=== PATIENT | female | born 1930 | race Caucasian/White ===

== ENCOUNTER 2019-07-06 16:10 | Emergency (ER) | payer OTHER ==
[~2019-07-06] VITALS: Ht 157.5 cm; Wt 77.1 kg
[~2019-07-06 16:10] MED LIST: ASPI81CH PO; ATEN100; ATEN50 PO; Amlodipine Bes2.5 MG PO; BENA20; CEPH500 PO; DIGO.125; DIGO.125 PO; HCTZ; HYDCHL12.5; IBUP800 PO; ISOMON20 PO; LEVFLO500 PO; LISI5 PO; META800 PO; POTCHL20ER PO; PRAV20 PO; Prednisone20 MG PO; Prilosec20 MG PO; TORSE20 PO; TRAM50 PO; UNK DIURETIC; Ventolin/Prove6.7 GM INH
[2019-07-06] MEDS ORDERED: TORSE20 PO (16:37)
[2019-07-06] MEDS ORDERED: METO25ER PO (16:38)
[2019-07-06] MEDS ORDERED: FEBU40TA (16:39)
[2019-07-06] MEDS ORDERED: Acetaminophen-1 EAC1 PO (16:40)
[2019-07-06 16:47] LABS: BASOPHILS ABSOLUTE AUTO 0.04 K/mm3 (0.00-0.23); BASOPHILS PERCENT AUTO 1 % (0-2); EOSINOPHILS ABSOLUTE AUTO 0.03 K/mm3 (0.00-0.68); EOSINOPHILS PERCENT AUTO 1 % (0-6); Hematocrit 37.3 % (33.0-51.0); Hemoglobin 12.1 g/dL (11.5-16.0); IMMATURE GRAN ABSOLUTE AUTO 0.02 K/mm3 (0.00-0.10); IMMATURE GRAN PERCENT AUTO 0 % (0-1); LYMPHOCYTES ABSOLUTE AUTO 0.72 K/mm3 (0.84-5.20); LYMPHOCYTES PERCENT AUTO 11 % (21-46); MONOCYTES PERCENT AUTO 6 % (4-13); Mean Corpuscular HGB 36.8 pg (26.0-34.0); Mean Corpuscular HGB Conc 32.4 g/dL (31.5-36.5); Mean Corpuscular Volume 113 fL (80-100); Mean Platelet Volume 10.2 fL (9.1-12.4); NEUTROPHILS ABSOLUTE AUTO 5.08 K/mm3 (1.96-9.15); NEUTROPHILS PERCENT AUTO 81 % (41-73); Platelet Count 244 K/mm3 (150-400); RDW Coefficient Variation 15.3 % (11.7-14.2); Red Blood Cell Count 3.29 M/mm3 (3.80-5.20); White Blood Cell Count 6.29 K/mm3 (4.00-11.30)
[2019-07-06 16:59] LABS: Alanine Aminotransfer (ALT/SGP 50 U/L (12-78); Albumin, Blood 3.6 g/dL (3.4-5.0); Alk Phos 152 U/L (50-136); Anion Gap 5 mmol/L (6-16); Aspartate Aminotrans (AST/SGOT 84 U/L (12-37); Bilirubin, Total 1.5 mg/dL (0.1-1.0); Blood Urea Nitrogen 9 mg/dL (8-24); Bun/Creatinine Ratio 11.3 (12.0-20.0); CO2, Blood 28 mmol/L (21-32); Chloride, Blood 104 mmol/L (98-108); Globulin, Blood 3.6 g/dL (2.2-4.0); Glomerular Filtration Rate >60 (60-); Glucose, Blood 108 mg/dL (70-99); Potassium, Blood 4.3 mmol/L (3.5-5.5); Sodium, Blood 137 mmol/L (136-145); Total Protein, Blood 7.2 g/dL (6.4-8.2)
[2019-07-06] MEDS ORDERED: TYLECOD3 PO (17:33)
== END 2019-07-06 18:14 | disposition home or self-care (01) ==
LOC: ER 16:10
PROVIDERS: Emergency Medicine
DX: I11.0 Hypertensive heart disease with heart failure (principal); I50.9 Heart failure, unspecified; I48.91 Unspecified atrial fibrillation; E78.5 Hyperlipidemia, unspecified; D64.9 Anemia, unspecified; Z79.899 Other long term (current) drug therapy; Z79.82 Long term (current) use of aspirin
CPT/HCPCS: 71101; 80053; 84484; 85025; 93005; 93010; 96374; 99284-25; J1940

== ENCOUNTER 2019-09-30 16:00 | Inpatient (IN) | payer OTHER ==
[~2019-09-30] VITALS: Ht 152.4 cm; Wt 57.8 kg
[~2019-09-30 16:00] MED LIST changes: -ASPI81CH PO; -Amlodipine Bes2.5 MG PO; -DIGO.125 PO; +FEBU40TA; +METO25ER PO; -POTCHL20ER PO; +TYLECOD3 PO
[2019-09-30 16:42] LABS: BASOPHILS ABSOLUTE AUTO 0.02 K/mm3 (0.00-0.23); BASOPHILS PERCENT AUTO 0 % (0-2); EOSINOPHILS ABSOLUTE AUTO 0.03 K/mm3 (0.00-0.68); EOSINOPHILS PERCENT AUTO 0 % (0-6); Hematocrit 38.6 % (33.0-51.0); Hemoglobin 12.5 g/dL (11.5-16.0); IMMATURE GRAN ABSOLUTE AUTO 0.03 K/mm3 (0.00-0.10); IMMATURE GRAN PERCENT AUTO 0 % (0-1); LYMPHOCYTES ABSOLUTE AUTO 0.58 K/mm3 (0.84-5.20); LYMPHOCYTES PERCENT AUTO 8 % (21-46); MONOCYTES ABSOLUTE AUTO 0.46 K/mm3 (0.16-1.47); MONOCYTES PERCENT AUTO 6 % (4-13); Mean Corpuscular HGB 37.2 pg (26.0-34.0); Mean Corpuscular HGB Conc 32.4 g/dL (31.5-36.5); Mean Corpuscular Volume 115 fL (80-100); Mean Platelet Volume 10.1 fL (9.1-12.4); NEUTROPHILS ABSOLUTE AUTO 6.05 K/mm3 (1.96-9.15); NEUTROPHILS PERCENT AUTO 84 % (41-73); Platelet Count 273 K/mm3 (150-400); RDW Coefficient Variation 16.3 % (11.7-14.2); Red Blood Cell Count 3.36 M/mm3 (3.80-5.20); White Blood Cell Count 7.17 K/mm3 (4.00-11.30)
[2019-09-30 16:57] LABS: Alanine Aminotransfer (ALT/SGP 21 U/L (12-78); Albumin, Blood 3.6 g/dL (3.4-5.0); Albumin/Globulin Ratio 0.9 (0.8-1.8); Alk Phos 139 U/L (50-136); Anion Gap 6 mmol/L (6-16); Aspartate Aminotrans (AST/SGOT 29 U/L (12-37); Bilirubin, Total 2.2 mg/dL (0.1-1.0); Blood Urea Nitrogen 14 mg/dL (8-24); Bun/Creatinine Ratio 20.3 (12.0-20.0); CO2, Blood 27 mmol/L (21-32); Calcium, Blood 9.3 mg/dL (8.5-10.1); Chloride, Blood 102 mmol/L (98-108); Creatinine, Blood 0.69 mg/dL (0.40-1.00); Globulin, Blood 3.9 g/dL (2.2-4.0); Glomerular Filtration Rate >60 (60-); Glucose, Blood 120 mg/dL (70-99); Potassium, Blood 3.7 mmol/L (3.5-5.5); Sodium, Blood 135 mmol/L (136-145); Total Protein, Blood 7.5 g/dL (6.4-8.2)
[2019-09-30 19:02] LABS: Source, Urine Clean Catch
[2019-09-30 19:13] LABS: Blood, Urine 1+ (Neg); Glucose Qualitative, Urine Neg (Neg); Ketones, Urine 1+ (Neg); Leukocyte Esterase, Urine 2+ (Neg); Nitrite, Urine Pos (Neg); Protein, Urine 2+ (Neg); Specific Gravity, Urine 1.025 (1.003-1.022); Urobilinogen, Urine 3+ (Normal)
[2019-09-30 19:26] LABS: Appearance, Urine Cloudy (Clear); Bilirubin, Urine 2+ (Neg); Color, Urine Amber (P-Yellow)
[2019-09-30 19:27] LABS: Bacteria Many /hpf; Squamous Epithelial Cells Few /hpf (Few)
[2019-09-30] MEDS ORDERED: LANOXIN125 MCG PO (20:16)
[2019-09-30] MEDS ORDERED: Acetaminophen-1 EAC1 PO (20:17)
[2019-09-30] MEDS ORDERED: ASPI81CH PO (20:18)
[2019-09-30] MEDS ORDERED: Amlodipine Bes2.5 MG PO (20:19)
[2019-09-30] MEDS ORDERED: POTA10T PO ×2 (20:20)
[2019-09-30 20:43] LABS: Digoxin (Lanoxin) 0.08 ug/mL (0.80-2.00)
[2019-09-30 21:40] LABS: Magnesium, Blood 1.9 mg/dL (1.6-2.4)
[2019-09-30] MEDS ORDERED: ELIQUIS2.5 MG PO (22:09)
--- NOTE | 2019-09-30 22:10 | NUR ---
ATTEMPTED TO CALL FOR REPORT ON PATIENT; SUNDEEP COSTA WAS NOT ABLE TO COME TO PHONE AND WILL CALL WHEN AVAILABLE.
--- NOTE | 2019-10-01 01:30 | NUR ---
ASSUMED CARE OF PATIENT AT APPROXIMATELY 2246 FROM ED JASSON HEARD. YUKO ARRIVED TO UNIT VIA STRETCHER; MAX ASSIST TO TRANFSER FROM ED TO PCU STRETCHER. PATIENT ALERT AND ORIENTED TO SELF, LOCATION AND EVENT. YUKO INCONTINENT OF LARGE AMOUNT OF URINE UPON ARRIVAL TO UNIT. PATIENT HAD RAGS IN HER HOME ATTENDS; PATIENT HAS UTI. PATIENT HAS BEEN INCONTINENT OF URINE MULTIPLE TIMES. PATIENT REPORTS PAIN IN HER BACK FROM FALL LAST WEEK; FX CONFIRMED; REQUEST DILUADID. PATIENT REPORTS SHE TAKES MEDICATIONS PER HER DISCRETION. REPORTS NUMBNESS IN FEET FOR TWO WEEKS; POOR APPETITE RECENTLY; DRINKS WHISKEY DAILY WITH DINNER. PATIENT DENIES TINGLING, DIZZINESS OR NAUSEA. ADMISSION COMPLETE. PATIENT WAS AFIB ON TELE W/ RATE IN 130'S UPON ARRIVAL; ONE DOSE OF PRN METOPROLOL GIVEN AND HEART RATE CURRENTLY AVERAGING 90'S. NO FAMILY PRESENT UPON ADMISSION. PATIENT CURRENTLY RESTING IN BED; CALL LIGHT IN REACH; BED IN LOWEST POSISTION; BED ALARM ON; WILL CONTINUE TO MONITOR AND ASSESS UNTIL END OF SHIFT.
--- NOTE | 2019-10-01 06:36 | NUR ---
NO ACUTE CHANGES TO REPORT. HEART RATE REMAINED IN 90-100'S. PAIN CONTROLLED. WILL CONTINUE TO MONITOR AND ASSESS UNTIL END OF SHIFT. VSS.
--- NOTE | 2019-10-01 18:58 | NUR ---
SHIFT SUMMARY NO ACUTE CHANGES NOTED THROUGH THE DAY. PT REMAINS A&O X3, ON 2 L O2 VIA NC, AFIB PER INFORMATION CLERK BROKERAGE, DENIES CP/SOB, 1 PERSON ASSIST USING GAIT BELT/FWW FOR TRANSFERS. PT WAS ABLE TO WORK WITH PHYSICAL THERAPY TODAY. HER SON WAS ALSO IN TO VISIT AND REQUESTED MULTIPLE COPY'S OF THE PT'S D/C MED LIST SO THAT HE COULD POT THEM AROUND THE HOUSE FOR THE BOTH OF THEM. HE STATED THAT HE "DID NOT REALIZE THAT SHE HAD NOT BEEN TAKING THEM OR THAT IT HAD GOTTEN TO THIS POINT" "I NEED TO START DOING BETTER". HE IS HER MAIN SUBCONTRACTS MANAGER ACCORDING TO THE PT. CIWA SCORES HAVE BEEN NEGATIVE. PT'S PAIN MANAGED PER EMAR. SHE WAS STARTED ON PO NORCO THIS EVENING. WCTM, CALL LIGHT IN REACH,
--- NOTE | 2019-10-01 21:05 | NUR ---
Assumed Care Assumed care of pt at approx 1945 from JASSON Slaughter. Pt in bed, HOB at 15 degrees, tachypneic at 20-25 breathes per minute, pt complains of SOB related to pain in ribs. VSS. Alert and oriented, appears frail, requires assistance with repositions. Takes medications whole with water. DNR band to Right Arm. See shift assessment for detailed assessment. Pt with moderate resp distress with movement from lying to sitting. Respiratory rate increases to 30's and oxygen requirement elevates from 2 L NC to 3.5LPM. pt able to make needs known with call light. Will continue to monitor.
--- NOTE | 2019-10-02 04:42 | NUR ---
Shift Summary Pt with continued pain throughout night excited by movement. When at rest, pt breathing shallow, tachypneic between 23-25. With movement, pt appears to have labored, shallow, tachypneic breathes of 30-35 Respiration rate. Pt tolerating pain with medications currently in [place]. VSS, call light in reach, calls appropriately, alert and oriented. Pt is SBA to BSC for voiding, occasionally incont, attends in place. Pt voididng around 100 mls at a time, concentrated urine.Will continue to monitor.
[2019-10-02 04:52] LABS: BASOPHILS ABSOLUTE AUTO 0.02 K/mm3 (0.00-0.23); BASOPHILS PERCENT AUTO 0 % (0-2); EOSINOPHILS ABSOLUTE AUTO 0.18 K/mm3 (0.00-0.68); EOSINOPHILS PERCENT AUTO 3 % (0-6); Hematocrit 33.1 % (33.0-51.0); Hemoglobin 10.7 g/dL (11.5-16.0); IMMATURE GRAN ABSOLUTE AUTO 0.02 K/mm3 (0.00-0.10); IMMATURE GRAN PERCENT AUTO 0 % (0-1); LYMPHOCYTES ABSOLUTE AUTO 0.58 K/mm3 (0.84-5.20); LYMPHOCYTES PERCENT AUTO 10 % (21-46); MONOCYTES ABSOLUTE AUTO 0.51 K/mm3 (0.16-1.47); MONOCYTES PERCENT AUTO 8 % (4-13); Mean Corpuscular HGB 36.5 pg (26.0-34.0); Mean Corpuscular HGB Conc 32.3 g/dL (31.5-36.5); Mean Corpuscular Volume 113 fL (80-100); Mean Platelet Volume 9.8 fL (9.1-12.4); NEUTROPHILS ABSOLUTE AUTO 4.78 K/mm3 (1.96-9.15); NEUTROPHILS PERCENT AUTO 79 % (41-73); Platelet Count 217 K/mm3 (150-400); RDW Coefficient Variation 15.9 % (11.7-14.2); RDW Standard Deviation 67.5 fL (35.1-46.3); Red Blood Cell Count 2.93 M/mm3 (3.80-5.20); White Blood Cell Count 6.09 K/mm3 (4.00-11.30)
[2019-10-02 05:11] LABS: Alanine Aminotransfer (ALT/SGP 16 U/L (12-78); Albumin, Blood 2.9 g/dL (3.4-5.0); Alk Phos 115 U/L (50-136); Anion Gap 7 mmol/L (6-16); Aspartate Aminotrans (AST/SGOT 21 U/L (12-37); Bilirubin, Total 1.3 mg/dL (0.1-1.0); Blood Urea Nitrogen 11 mg/dL (8-24); CO2, Blood 33 mmol/L (21-32); Calcium, Blood 8.3 mg/dL (8.5-10.1); Chloride, Blood 101 mmol/L (98-108); Creatinine, Blood 0.73 mg/dL (0.40-1.00); Glomerular Filtration Rate >60 (60-); Glucose, Blood 84 mg/dL (70-99); Magnesium, Blood 1.4 mg/dL (1.6-2.4); Phosphorus, Blood 2.4 mg/dL (2.5-4.9); Potassium, Blood 3.4 mmol/L (3.5-5.5); Sodium, Blood 141 mmol/L (136-145); Total Protein, Blood 5.9 g/dL (6.4-8.2)
--- NOTE | 2019-10-02 07:27 | NUR ---
ASSUMED PATIENT CARE. PATIENT RESTING COMFORTABLY IN BED, CONVERSING WITH NURSING STAFF. NO SIGNS OF ACUTE DISTRESS, WCTM.
--- NOTE | 2019-10-02 13:41 | NUR ---
REPORT CALLED TO TAMMIE SPAULDING IN MEDICAL.
--- NOTE | 2019-10-02 15:31 | NUR ---
TRANSFER PT ARRIVED TO MEDICAL FLOOR, ROOM 334. PT ORIENTED TO CALL LIGHT AND ROOM. MEDICATED FOR HEADACHE PAIN WITH TYLENOL PER EMAR. PT HAS NO FURTHER REQUESTS OR COMPLAINTS AT THIS TIME. PT SLEEPING. WILL CONTINUE TO MONITOR. CALL LIGHT IN REACH. BED ALARM ON FOR SAFETY.
--- NOTE | 2019-10-02 18:37 | NUR ---
SHIFT SUMMARY PT WAS A PCU TRANSFER LATE THIS AFTERNOON. THIS RN HAS MEDICATED FOR PAIN X2 THIS SHIFT. PT HAD AN EPISODE BEFORE DINNER WHEN PT WAS CONFUSED AND THOUGHT SHE HAD BEEN KIDNAPPED AND THAT WE, THE STAFF HAD HER IN THE BASEMENT. THIS RN CALLED PT'S SON AND HE TALKED WITH HER AND SHE CALMED DOWN. PT UP TO BATHROOM WITH ASSISTANCE AND NOW BACK IN BED, VISITING WITH FAMILY. NO DISTRESS AT THIS TIME. CALL LIGHT IN REACH AND BED ALARM ON FOR SAFETY. WILL CONTINUE TO MONITOR AND REPORT TO ONCOMING RN.
[2019-10-03 05:44] LABS: Anion Gap 7 mmol/L (6-16); Blood Urea Nitrogen 14 mg/dL (8-24); CO2, Blood 29 mmol/L (21-32); Chloride, Blood 100 mmol/L (98-108); Creatinine, Blood 0.78 mg/dL (0.40-1.00); Glomerular Filtration Rate >60 (60-); Glucose, Blood 81 mg/dL (70-99); Sodium, Blood 136 mmol/L (136-145)
[2019-10-03 05:48] LABS: BASOPHILS ABSOLUTE AUTO 0.02 K/mm3 (0.00-0.23); BASOPHILS PERCENT AUTO 0 % (0-2); EOSINOPHILS ABSOLUTE AUTO 0.16 K/mm3 (0.00-0.68); EOSINOPHILS PERCENT AUTO 3 % (0-6); Hematocrit 33.4 % (33.0-51.0); IMMATURE GRAN ABSOLUTE AUTO 0.04 K/mm3 (0.00-0.10); IMMATURE GRAN PERCENT AUTO 1 % (0-1); LYMPHOCYTES ABSOLUTE AUTO 0.64 K/mm3 (0.84-5.20); LYMPHOCYTES PERCENT AUTO 10 % (21-46); MONOCYTES ABSOLUTE AUTO 0.44 K/mm3 (0.16-1.47); MONOCYTES PERCENT AUTO 7 % (4-13); Mean Corpuscular HGB 36.9 pg (26.0-34.0); Mean Corpuscular HGB Conc 32.9 g/dL (31.5-36.5); Mean Corpuscular Volume 112 fL (80-100); NEUTROPHILS PERCENT AUTO 80 % (41-73); Platelet Count 205 K/mm3 (150-400); RDW Coefficient Variation 15.7 % (11.7-14.2); RDW Standard Deviation 64.9 fL (35.1-46.3); Red Blood Cell Count 2.98 M/mm3 (3.80-5.20)
--- NOTE | 2019-10-03 07:18 | NUR ---
SHIFT SUMMARY PT IS AN 89 Y/O FEMALE, ADMITTED FOR AFIB C RVR. SHE IS A&O X 3, OCCASIONALLY CONFUSED. PT IS A 1-2PA UP TO THE BATHROOM. SHE REPORTED SIDE AND BACK PAIN DURING THE NIGHT, AND WAS MEDICATED ONCE WITH PRN HYDROCODONE. NO COMPLAINTS OF NAUSEA OR SOB. PER PT'S FAMILY, PT IS A DAILY DRINKER AT HOME, AND PT'S FAMILY IS WORRIED THAT PT MAY BE WITHDRAWING. SHE WAS PLEASANT AND COOPERATIVE DURING THE NIGHT, NO EPISODE OF AGITATION. CIWAS BETWEEN 0-2. VITAL SIGNS STABLE. PER VICE ADMIRAL, PT IS IN AFIB IN THE 80S. NO OTHER ACUTE CHANGES IN PT CONDITION NOTED. REPORT GIVEN TO ONCOMING RN.
--- NOTE | 2019-10-03 16:14 | NUR ---
ALERT. ORIENTED. SLEEPS ON LEFT SIDE DUE TO RIB AND BACK PAIN. 1 PERSON ASSIST TO BATHROOM. CIWA NEGATIVE. REQUESTED KELLY, BUT THIS RN DISCUSSED WHY SHE SHOULDN'T HAVE ONE. UNLABORED RESPIRATIONS. MEDICATED FOR PAIN W/GOOD RESULTS. BED IN LOW POSITION. CALL LIGHT WITHIN REACH. [facility]
--- NOTE | 2019-10-03 17:13 | NUR ---
Patient gave permission for care tomorrow.
--- NOTE | 2019-10-04 05:46 | NUR ---
LIGHT BULB TESTER SUMMARY NO ACUTE CHANGES THIS SHIFT. PT AAOX4 AND PLEASANT. STANDBY ASSIST TO BSC. CONTINUES TO HAVE PAIN IN RIBS AND BACK FROM FALL PRIOR TO ADMIT. MEDICATED Q4H PER EMAR. VSS, WILL CONTINUE TO MONITOR.
--- NOTE | 2019-10-04 14:47 | NUR ---
PT GAVE THIS STENCIL CUTTER PERMISSION TO TAKE CARE OF HER TODAY 10/04/2019.
--- NOTE | 2019-10-04 15:33 | NUR ---
Pt gave permission on 10/04/19 to assist in her care on 10/05/19.
--- NOTE | 2019-10-04 18:42 | NUR ---
ALERT. ORIENTED. ABLE TO SIT UP A LITTLE BETTER TODAY; WHEREAS , YESTERDAY WANTED TO LYE ON SIDE DUE TO PAIN. IV PATENT. PATIENT TO GO TO SNF FOR REHAB WHEN AVAILABLE. WALKING IN ROOM W/ASSIST. WCTM
--- NOTE | 2019-10-05 04:36 | NUR ---
GRINDING MILL OPERATOR SUMMARY PT AAOX4 AND PLEASANT. CONTINUES TO HAVE PAIN FROM RIB AND T11 FX'S. HOWEVER, PT REQUIRING PAIN MEDS LESS FREQUENTLY TONIGHT. PT STATED SHE HAD A LONG DAY AFTER WORKING WITH PT/OT AND MAY HAVE PUSHED HERSELF TO HARD. REMAINS ON 3L O2 VIA NC. PT HAS RESTED MOST OF THE SHIFT WITH NO COMPLAINTS. AFIB IN THE 70'S ON TELEMETRY. VSS, WILL CONTINUE TO MONITOR.
--- NOTE | 2019-10-05 18:19 | NUR ---
SHIFT SUMMARY PT HAS BEEN SLEEPING A LOT OF THE SHIFT AND HAS NOT HAD MUCH OF AN APPETITE. THIS RN HAS ENCOURAGED PT TO GET OUT OF BED INTO CHAIR BUT PT HAS DECLINED. PT WILL SIT ON SIDE OF BED FOR MEALS. MEDICATED FOR PAIN PER EMAR. NO ACUTE CHANGES THIS SHIFT. WILL CONTINUE TO MONITOR AND REPORT TO ONCOMING RN.
--- NOTE | 2019-10-06 04:41 | NUR ---
SHIFT SUMMARY: PT IS ALERT AND ORIENTED. PT IS CALM AND COOPERATIVE WITH CARE. PT CALLS APPROPRIATELY. PT TOO WEAK AND PAINFUL TO GET OUT OF BED, INCONTINENT ON SEVERAL OCCASIONS, CHANGED AND CLEANED NEEDED. PT REPORTS BACK PAIN SEVERAL TIMES, MEDICATING PER EMAR. PT DENIES SOB, 3 L O2 KEEPING SATS > 90%. PT DENIES NAUSEA AND VOMITING. PT SLEPT INTERMITTENTLY THROUGHOUT THE NIGHT. NO ACUTE CHANGES OR COMPLICATIONS. WILL REPORT TO DAY NURSE.
[2019-10-06 05:13] LABS: BASOPHILS ABSOLUTE AUTO 0.04 K/mm3 (0.00-0.23); BASOPHILS PERCENT AUTO 1 % (0-2); EOSINOPHILS ABSOLUTE AUTO 0.21 K/mm3 (0.00-0.68); EOSINOPHILS PERCENT AUTO 3 % (0-6); Hematocrit 32.5 % (33.0-51.0); Hemoglobin 10.3 g/dL (11.5-16.0); IMMATURE GRAN ABSOLUTE AUTO 0.02 K/mm3 (0.00-0.10); IMMATURE GRAN PERCENT AUTO 0 % (0-1); LYMPHOCYTES ABSOLUTE AUTO 0.92 K/mm3 (0.84-5.20); LYMPHOCYTES PERCENT AUTO 15 % (21-46); MONOCYTES ABSOLUTE AUTO 0.57 K/mm3 (0.16-1.47); MONOCYTES PERCENT AUTO 9 % (4-13); Mean Corpuscular HGB 36.1 pg (26.0-34.0); Mean Corpuscular HGB Conc 31.7 g/dL (31.5-36.5); Mean Corpuscular Volume 114 fL (80-100); Mean Platelet Volume 9.8 fL (9.1-12.4); NEUTROPHILS ABSOLUTE AUTO 4.47 K/mm3 (1.96-9.15); NEUTROPHILS PERCENT AUTO 72 % (41-73); Platelet Count 216 K/mm3 (150-400); RDW Coefficient Variation 15.8 % (11.7-14.2); RDW Standard Deviation 66.3 fL (35.1-46.3); Red Blood Cell Count 2.85 M/mm3 (3.80-5.20); White Blood Cell Count 6.23 K/mm3 (4.00-11.30)
[2019-10-06 05:34] LABS: Alanine Aminotransfer (ALT/SGP 14 U/L (12-78); Albumin, Blood 2.9 g/dL (3.4-5.0); Albumin/Globulin Ratio 0.9 (0.8-1.8); Alk Phos 130 U/L (50-136); Anion Gap 3 mmol/L (6-16); Aspartate Aminotrans (AST/SGOT 20 U/L (12-37); Blood Urea Nitrogen 13 mg/dL (8-24); CO2, Blood 33 mmol/L (21-32); Calcium, Blood 8.9 mg/dL (8.5-10.1); Chloride, Blood 100 mmol/L (98-108); Creatinine, Blood 0.81 mg/dL (0.40-1.00); Globulin, Blood 3.1 g/dL (2.2-4.0); Glomerular Filtration Rate >60 (60-); Glucose, Blood 82 mg/dL (70-99); Potassium, Blood 4.4 mmol/L (3.5-5.5); Sodium, Blood 136 mmol/L (136-145)
--- NOTE | 2019-10-06 08:50 | NUR ---
V-TACH PER TELE ORGANISATION AND METHODS ANALYST, PT HAD A 10 BEAT RUN OF VTACH AND AT 0843. PT ASYMPTOMATIC. DR. LLANOS IN TO SEE PT NOW AND THIS RN DISCUSSED WITH HIM PT'S VTACH AND DR. LLANOS REPORTS HE WOULD LOOK AT THE RHYTHM STRIP. NO ORDERS OR CHANGES AT THIS TIME. CALL LIGHT IN REACH.
--- NOTE | 2019-10-06 19:25 | NUR ---
SHIFT SUMMARY PT WAS UP IN THE CHAIR FOR LUNCH AND DINNER AND HAS HAD A BETTER APPETITE THIS AFTERNOON AND EVENING. PT WORKED WITH PHYSICAL AND OCCUPATIONAL THERAPY AND AMBULATED IN THE [place]. MEDICATED FOR PAIN PER EMAR. PT HAS HAD NO ACUTE CHANGES. WAITING FOR PT TO HAVE SAFE DISCHARGE PLAN.
--- NOTE | 2019-10-07 06:24 | NUR ---
SHIFT SUMMARY: PATIENT IS A&O X3, REPORTING RIB/BACK PAIN 7/10 WITH MOVEMENT. PRN NORCO IS GIVEN WITH GOOD EFFECT. WHEN PAIN IS AT WORST RESPIRATIONS WERE OBSERVED AT 30 WITH A SAT OF 96% ON 3L NC. PATIEN T IS SHALLOW BREATHING DUE TO PAIN. RESPIRATIONS IMPROVE AFTER PAIN MEDS ARE GIVEN, FROM 30 TO 20 WHILE SLEEPING AFTER NORCO ADMIN. OTHERWISE VS ARE STABLE.
--- NOTE | 2019-10-07 15:51 | NUR ---
SHIFT SUMMARY PT IS A/O X 4 AND HAD NO C/O PAIN UNTIL THIS AFTERNOON WHICH SHE REPORTS IS IN HER BACK AND RIGHT RIBS. DR AMAYA WAS NOTIFIED AND ORDERS WERE GIVEN REFLECTED ON OCT. PAIN MEDS WERE GIVEN ORDERED AND PT WAS ASLEEP UNTIL HER SON JUST CAME TO VISIT HER. PT DID WORK WITH THERAPY TODAY AND WAS A X 1 ASSIST FOR TRANSFERS BUT X 2 ASSIST TO PULL UP AND REPOSITION IN BED. PT IS ABLE TO MAKE HER NEEDS KNOWN AND CALLS FOR HELP WHEN NEEDED. CALL LIGHT IS IN REACH. SON IS AT THE BEDSIDE NOW.
[2019-10-08 06:21] LABS: BASOPHILS ABSOLUTE AUTO 0.04 K/mm3 (0.00-0.23); BASOPHILS PERCENT AUTO 1 % (0-2); EOSINOPHILS ABSOLUTE AUTO 0.19 K/mm3 (0.00-0.68); EOSINOPHILS PERCENT AUTO 3 % (0-6); Hematocrit 31.9 % (33.0-51.0); Hemoglobin 10.3 g/dL (11.5-16.0); IMMATURE GRAN ABSOLUTE AUTO 0.02 K/mm3 (0.00-0.10); IMMATURE GRAN PERCENT AUTO 0 % (0-1); LYMPHOCYTES ABSOLUTE AUTO 0.84 K/mm3 (0.84-5.20); LYMPHOCYTES PERCENT AUTO 12 % (21-46); MONOCYTES PERCENT AUTO 10 % (4-13); Mean Corpuscular HGB 36.7 pg (26.0-34.0); Mean Corpuscular HGB Conc 32.3 g/dL (31.5-36.5); Mean Corpuscular Volume 114 fL (80-100); Mean Platelet Volume 10.1 fL (9.1-12.4); NEUTROPHILS ABSOLUTE AUTO 5.05 K/mm3 (1.96-9.15); NEUTROPHILS PERCENT AUTO 74 % (41-73); Platelet Count 227 K/mm3 (150-400); RDW Coefficient Variation 15.7 % (11.7-14.2); RDW Standard Deviation 66.2 fL (35.1-46.3); Red Blood Cell Count 2.81 M/mm3 (3.80-5.20); White Blood Cell Count 6.84 K/mm3 (4.00-11.30)
--- NOTE | 2019-10-08 06:39 | NUR ---
SHIFT SUMMARY: PATIENT IS A&OX4, CONTINUES TO REPORT RIB AND BACK PAIN 8/10 WITH MOVEMENT, 3/10 AT REST. PAIN IS WELL CONTROLED WITH ALTERNATING TYLENOL AND NORCO. VS ARE STABLE, NO EVENTS ON THE TELI.
[2019-10-08 06:47] LABS: Albumin, Blood 2.8 g/dL (3.4-5.0); Anion Gap 3 mmol/L (6-16); Blood Urea Nitrogen 14 mg/dL (8-24); Bun/Creatinine Ratio 16.6 (12.0-20.0); CO2, Blood 34 mmol/L (21-32); Chloride, Blood 99 mmol/L (98-108); Creatinine, Blood 0.84 mg/dL (0.40-1.00); Glomerular Filtration Rate >60 (60-); Glucose, Blood 89 mg/dL (70-99); Magnesium, Blood 1.6 mg/dL (1.6-2.4); Phosphorus, Blood 3.2 mg/dL (2.5-4.9); Potassium, Blood 4.5 mmol/L (3.5-5.5); Sodium, Blood 136 mmol/L (136-145)
--- NOTE | 2019-10-08 18:14 | NUR ---
SHIFT SUMMARY: NO ACUTE CHANGES TO REPORT THIS SHIFT. PT A&O; CALM AND COOPERATIVE WITH CARE. MEDICATED FOR RIB & FX T-11 PAIN PER EMAR. UTI: IV ABX CONTINUING. WCTM.
--- NOTE | 2019-10-09 08:14 | NUR ---
SUMMARY PT HAD DISCOMFORT NOTED AT TIMES T/O SHIFT. PT RESPONDED WEL TO TX. PT REFUSED TO BE REPOSITIONED AND LAID ON HER LEFT SIDE T/O SHIFT. PT DID SLEEP SOME DURING SHIFT. REPORT GIVEN TO DAY RN.
--- NOTE | 2019-10-09 18:37 | NUR ---
SHIFT SUMMARY: NO ACUTE CHANGES TO REPORT THIS SHIFT. PT A&O; CALM AND COOPERATIVE WITH CARE. MEDICATED FOR BACK & R RIB PAIN PER EMAR. PT UP WITH 1-ASSIST TO BATHROOM. TELE IN PLACE; A-FIB IN 70s PER EXPERIMENTAL PHYSICIST DURING MORNING ASSESSMENT. L PE & UTI; IV ABX CONTINUING. WCTM.
--- NOTE | 2019-10-10 06:06 | NUR ---
10/09/19 0605 AWAKENED FOR BRIEF CHECK. INCONTINENT OF URINE AND CHANGED. JOSELUIS-CARE GIVEN. C/O LEVEL "8" RIB AND BACK PAIN. MEDICATED PER OCT.
[2019-10-10 06:14] LABS: BASOPHILS ABSOLUTE AUTO 0.05 K/mm3 (0.00-0.23); BASOPHILS PERCENT AUTO 1 % (0-2); EOSINOPHILS PERCENT AUTO 4 % (0-6); Hemoglobin 10.4 g/dL (11.5-16.0); IMMATURE GRAN ABSOLUTE AUTO 0.04 K/mm3 (0.00-0.10); IMMATURE GRAN PERCENT AUTO 1 % (0-1); LYMPHOCYTES ABSOLUTE AUTO 0.65 K/mm3 (0.84-5.20); LYMPHOCYTES PERCENT AUTO 9 % (21-46); MONOCYTES ABSOLUTE AUTO 0.75 K/mm3 (0.16-1.47); MONOCYTES PERCENT AUTO 11 % (4-13); Mean Corpuscular HGB 36.1 pg (26.0-34.0); Mean Corpuscular HGB Conc 31.5 g/dL (31.5-36.5); Mean Corpuscular Volume 115 fL (80-100); Mean Platelet Volume 10.1 fL (9.1-12.4); NEUTROPHILS ABSOLUTE AUTO 5.13 K/mm3 (1.96-9.15); NEUTROPHILS PERCENT AUTO 74 % (41-73); Platelet Count 249 K/mm3 (150-400); RDW Coefficient Variation 15.5 % (11.7-14.2); RDW Standard Deviation 66.4 fL (35.1-46.3); Red Blood Cell Count 2.88 M/mm3 (3.80-5.20); White Blood Cell Count 6.92 K/mm3 (4.00-11.30)
[2019-10-10 06:25] LABS: Albumin, Blood 2.8 g/dL (3.4-5.0); Anion Gap 4 mmol/L (6-16); Blood Urea Nitrogen 20 mg/dL (8-24); Bun/Creatinine Ratio 22.1 (12.0-20.0); CO2, Blood 33 mmol/L (21-32); Calcium, Blood 8.8 mg/dL (8.5-10.1); Chloride, Blood 100 mmol/L (98-108); Creatinine, Blood 0.91 mg/dL (0.40-1.00); Glomerular Filtration Rate >60 (60-); Glucose, Blood 91 mg/dL (70-99); Magnesium, Blood 1.7 mg/dL (1.6-2.4); Phosphorus, Blood 2.9 mg/dL (2.5-4.9); Potassium, Blood 4.9 mmol/L (3.5-5.5); Sodium, Blood 137 mmol/L (136-145)
--- NOTE | 2019-10-10 09:30 | NUR ---
PT QUITE PLEASANT A/O DENIES PAIN AT THIS TIME. CURLED ON BED. STATES IF GETS UP PAIN IN RIBS AND BACK. FX/ H/R IRREG, NO MURMER NOTED. PER TELE AFIB 69. LUNGS CLEAR, CRACKLES BASES. ON 3L O2. RESP SHALLOW. EASY, UNLABORED. BT X4 ALST BM YEST. VOIDS BATHROOM 1 LIGHT ASST WITH FWW AND GAITEBELT. BED IN LOW POSITOIN CALL LITE IN [facility], CALLSAPPRP
--- NOTE | 2019-10-10 15:13 | NUR ---
Palmira was alert, friendly and conversant. No indications of pain, discomfort or non-visceral stress. She responded favorably to social attention, humor and positive life review. Palmira offered interesting detials about her family history, work profile and background. I provided active listening, encouragement, and affirmation. She exhibited clear signs of engagement and satisfaction and expressed appreciation.
--- NOTE | 2019-10-10 19:40 | NUR ---
1940-CAROLINE IS LAYING IN BED ON HER SIDE. REPORTS PAIN AT 8/10 IN CHEST AND BACK. IS DIFFICULT FOR HER TO TAKE A DEEP BREATH DUE TO RIB FX. ALSO DIFFICULT TO MOVE DUE TO PAIN AND DISCOMFORT. LUNG SOUNDS ARE DIMINISHED AND SHALLOW. HR IRREGULAR. MILD EDEMA NOTED. ATTENDS DRY. CALL LIGHT REACH. WILL CONTINUE TO MONITOR.
--- NOTE | 2019-10-10 19:46 | NUR ---
STARTED ON CALCITONIN SPRAY. STATES MOSTLY PAIN OKAY. ADVISED IS MED AVAIL. SHE RESISTANT. SON STATES WANTS IN SNF, APPARENTLY QUALIFIES PER DR SOME [facility] PER PT/OT. IN TO VISIT WITH THEM ABOUT THIS. SON QUITE FRUSTRATED. NEW XRAYS TAKEN THIS AFT. NO OTHER CONCERNS AT THIS TIEM. BED IN LOW POSITION, CALL LITE IN REACH, CALLS APPROP
--- NOTE | 2019-10-11 05:32 | NUR ---
SHIFT SUMMARY: CAROLINE HAS BEEN QUITE ALL OF SHIFT. SHE CONTINUES TO WANT TO LAY ON HER LEFT SIDE DISPITE NEED FOR POSITION CHANGE. SHE STATES IT IS NOT PAINFUL ON THAT SIDE. SHE IS UNABLE TO TAKE DEEP BREATHS WITH OUT PAIN. MOVEMENT IS EVEN DIFFICULT, SHE PERFERS TO LAY IN A BALL AND NOT MOVE. SHE REPORTS SHE HAS MILD NAUSEA LAST NIGHT BUT DID NOT CALL THE STAFF. NO EMESIS WAS NOTED. VS HAVE REMAINED STABLE, SHE DID HAVE DECREASE IN OXYGEN WHEN SLEEPING, PLACED 2 LITERS OF O2 ON HER SHE IMMEDIATLY CAME UP, COULD HAVE BEEN THE POSITION SHE WAS LAYING IN. PAIN HAS BEEN MANAGED WITH HYDROCODONE. ENCOURAGE DEEP BREATHING AND MOVEMENT. NO OTHER CHANGES TO REPORT THIS SHIFT.
--- NOTE | 2019-10-11 06:47 | NUR ---
UNABLE TO DO STANDING WEIGHT IT CAUSES TO MUCH PAIN WHEN THE PATIENT MOVES. SHE PERFERS NOT TO STAND FOR THE WEIGHT. WEIGHT OBTAINED VIA BED.
[2019-10-11 07:11] LABS: Alanine Aminotransfer (ALT/SGP 14 U/L (12-78); Albumin, Blood 2.7 g/dL (3.4-5.0); Albumin/Globulin Ratio 0.9 (0.8-1.8); Alk Phos 159 U/L (50-136); Anion Gap 4 mmol/L (6-16); Aspartate Aminotrans (AST/SGOT 16 U/L (12-37); Blood Urea Nitrogen 19 mg/dL (8-24); Bun/Creatinine Ratio 20.8 (12.0-20.0); CO2, Blood 32 mmol/L (21-32); Calcium, Blood 8.6 mg/dL (8.5-10.1); Chloride, Blood 100 mmol/L (98-108); Creatinine, Blood 0.91 mg/dL (0.40-1.00); Globulin, Blood 3.1 g/dL (2.2-4.0); Glomerular Filtration Rate >60 (60-); Glucose, Blood 81 mg/dL (70-99); Potassium, Blood 4.6 mmol/L (3.5-5.5); Sodium, Blood 136 mmol/L (136-145); Total Protein, Blood 5.8 g/dL (6.4-8.2)
--- NOTE | 2019-10-11 16:37 | NUR ---
PT GAVE PERMISSION FOR STUDENT NURSE TO CARE FOR HER ON 10/12/19
--- NOTE | 2019-10-11 19:24 | NUR ---
PT. HAS BEEN UP IN THE CHAIR A COUPLE TIMES TODAY FOR MEALS. AMB TO BR WITH 1 PERSON ASSIST AND FWW. PT TO RETURN HOME TOMORROW WITH A CAREGIVER.
--- NOTE | 2019-10-11 19:50 | NUR ---
1950-PAT WAS DOING BETTER TODAY. SHE GOT UP AND MOVED AROUND, WAS UP IN THE CHAIR, AND SAID SHE IS LOOKING FORWARD TO GOING HOME. HER SONS, EXWIFE WILL BE TAKING CARE OF HER, AND SHE LIKES HER. SHE FEELS SHE WOULD DO ALOT BETTER AT HOME, AT HER OWN PACE. LUNG SOUNDS DIMINISHED. ENCOURAGE DEEP BREATHING EXERCISES, SPLINTING, ECT. DEMENTRATED HOW TO DO THEM. SHE SAID SHE WOULD TRY THEM OUT. ATTENDS DRY. STILL VERY BRUISED AND FRAGILE APPEARING. CALL LIGHT IN REACH, WILL CONTINUE TO MONTIOR.
--- NOTE | 2019-10-12 00:09 | NUR ---
0009-SRAVAN HAS CALLED OUT SEVERAL TIMES OR USED HER CALL LIGHT. ASKING US TO GIVE THE CHILDERS TO HER SON. OR ASKING IF ANTWON WAS TAKEN INTO THE HOSPTIAL. OR FOR US TO LET THE DOGS OUT. SHE HAS WOKEN UP SEVERAL TIMES WITH THESE THOUGHTS CONFUSED ABOUT WHERE SHE IS AT. WHEN REORIENTING HER SHE COMES TO AND GOES RIGHT BACK TO SLEEP. SHE DOES NOT TRY TO GET UP DURING THOSE TIMES. WILL CONTIUE TO MONITOR HER.
--- NOTE | 2019-10-12 04:11 | NUR ---
SHIFT SUMMARY: PAT HAD SOME CONFUSION TONIGHT, WAKING UP THINKING SHE WAS AT HOME. SHE WAS REMEMBERING THINGS THAT APPARENTLY THE FAMILY HAD MENTIONED OR THINGS SHE FELT HAD TO BE DONE. SHE WAS REORIENTED ON SEVERAL OCCATIONS, AT TIMES SHE REALIZED IT AND OTHER TIMES SHE JUST WENT BACK TO SLEEP. SHE WAS EDUCATED ON DEEP BREATHING AND SPLINTING TONIGHT TO PREVENT PNEUMONIA. SHE WAS ENCOURAGED TO REPOSITION IN BED OFTEN AND MOVE AROUND, BUT REMAINED IN ONE SPOT. LUNG SOUNDS WERE DIMINISHED, NO COUGH NOTED. PAIN WAS CONTROLLED WITH THE HYDROCODONE. NO OTHER CHANGES TO REPORT THIS SHIFT.
[2019-10-12] MEDS ORDERED: POTCHL20ER PO (16:44)
[2019-10-12] MEDS ORDERED: Miacalcin I200 IU/ML (16:45)
[2019-10-12] MEDS ORDERED: DOCU100 PO (16:45)
[2019-10-12] MEDS ORDERED: ACET325 PO (16:45)
[2019-10-12] MEDS ORDERED: Norco 5-325 Ta1 EACH PO (16:47)
[2019-10-12] MEDS ORDERED: FURO20 PO (16:47)
[2019-10-12] MEDS ORDERED: Cymbalta20 MG PO (16:47)
[2019-10-12] MEDS ORDERED: MIRALAX17 GM PO (16:48)
[2019-10-12] MEDS ORDERED: METO25ER PO (16:48)
[2019-10-12] MEDS ORDERED: SENN187 PO (16:49)
[2019-10-12] MEDS ORDERED: SPIR25 PO (16:49)
[2019-10-12] MEDS ORDERED: CENTRUM SILVER1 EAC2 PO (16:53)
--- NOTE | 2019-10-12 17:00 | NUR ---
PT. DISCHARGED DENIS ON HOME HEALTH VIA [facility]. OXYGEN DELIVERED BY [facility] BEFORE PT. LEFT. SON NOTIFIED MEDS HAD BEEN FAXED TO [facility] AND THE HARD COPY FOR [facility] WAS IN DISCHARGE PACKET.
== END 2019-10-12 17:08 | disposition home health service (06) | DRG 308 ==
LOC: ER 16:00 → MEDS 16:01 → PCU 16:01 → MEDS 16:01 → PCU 23:00 → MEDS 10-02 14:15
PROVIDERS: Emergency Medicine; Family Medicine; Hospitalist; Internal Medicine; Internal Medicine Gastroenterology; Physician Assistant; ADMIT Family Medicine
DX: I48.21 Permanent atrial fibrillation (principal); E43 Unspecified severe protein-calorie malnutrition; S22.080A Wedge compression fracture of T11-T12 vertebra, initial encounter for closed fracture; S22.42XA Multiple fractures of ribs, left side, initial encounter for closed fracture; N10 Acute pyelonephritis; I50.32 Chronic diastolic (congestive) heart failure; J91.8 Pleural effusion in other conditions classified elsewhere; G89.11 Acute pain due to trauma; Z79.01 Long term (current) use of anticoagulants; W19.XXXA Unspecified fall, initial encounter; M81.0 Age-related osteoporosis without current pathological fracture; R16.0 Hepatomegaly, not elsewhere classified; K80.20 Calculus of gallbladder without cholecystitis without obstruction; I11.0 Hypertensive heart disease with heart failure; E78.5 Hyperlipidemia, unspecified; I27.20 Pulmonary hypertension, unspecified; R09.02 Hypoxemia; Z99.81 Dependence on supplemental oxygen; Z66 Do not resuscitate; D53.9 Nutritional anemia, unspecified; I36.1 Nonrheumatic tricuspid (valve) insufficiency; R26.0 Ataxic gait; R62.7 Adult failure to thrive; Z68.25 Body mass index [BMI] 25.0-25.9, adult
CPT/HCPCS: 36415; 71046; 72070; 72100; 74176; 76705; 80048; 80053; 80069; 80162; 81001; 82607; 82746; 83605; 83690; 83735; 83880; 84100; 84145; 84425; 85025; 87040; 93005; 93010; 93306; 94761; 96365; 96366; 96367; 96375; 96376; 97110; 97116; 97161; 97166; 97530; 97535; 99285-25; A9270; A9270-GY; G0378; J0696; J1170; J1940; J2405; J3010; J7050; J7060

== ENCOUNTER 2020-02-12 06:40 | Emergency (ER) | payer OTHER ==
[~2020-02-12] VITALS: Ht 152.4 cm; Wt 47.6 kg
[~2020-02-12 06:40] MED LIST changes: +ACET325 PO; +ASPI81CH PO; +Acetaminophen-1 EAC1 PO; +Amlodipine Bes2.5 MG PO; +CENTRUM SILVER1 EAC2 PO; +DOCU100 PO; +ELIQUIS2.5 MG PO; +FURO20 PO; +LANOXIN125 MCG PO; +MIRALAX17 GM PO; +Norco 5-325 Ta1 EACH PO; +POTA10T PO; +POTCHL20ER PO; +SENN187 PO
[2020-02-12 07:25] LABS: BASOPHILS ABSOLUTE AUTO 0.07 K/mm3 (0.00-0.23); BASOPHILS PERCENT AUTO 1 % (0-2); EOSINOPHILS ABSOLUTE AUTO 0.29 K/mm3 (0.00-0.68); EOSINOPHILS PERCENT AUTO 3 % (0-6); Hematocrit 33.2 % (33.0-51.0); Hemoglobin 10.7 g/dL (11.5-16.0); IMMATURE GRAN ABSOLUTE AUTO 0.18 K/mm3 (0.00-0.10); IMMATURE GRAN PERCENT AUTO 2 % (0-1); LYMPHOCYTES ABSOLUTE AUTO 1.24 K/mm3 (0.84-5.20); LYMPHOCYTES PERCENT AUTO 13 % (21-46); MONOCYTES ABSOLUTE AUTO 0.59 K/mm3 (0.16-1.47); MONOCYTES PERCENT AUTO 6 % (4-13); Mean Corpuscular HGB 34.1 pg (26.0-34.0); Mean Corpuscular HGB Conc 32.2 g/dL (31.5-36.5); Mean Corpuscular Volume 106 fL (80-100); Mean Platelet Volume 8.4 fL (9.1-12.4); NEUTROPHILS ABSOLUTE AUTO 7.29 K/mm3 (1.96-9.15); NEUTROPHILS PERCENT AUTO 76 % (41-73); Platelet Count 342 K/mm3 (150-400); RDW Coefficient Variation 14.2 % (11.7-14.2); RDW Standard Deviation 55.1 fL (35.1-46.3); Red Blood Cell Count 3.14 M/mm3 (3.80-5.20); White Blood Cell Count 9.66 K/mm3 (4.00-11.30)
[2020-02-12 07:43] LABS: Bun/Creatinine Ratio 13.3 (12.0-20.0); Calcium, Blood 8.2 mg/dL (8.5-10.1); Creatinine, Blood 1.13 mg/dL (0.40-1.00); Potassium, Blood 4.5 mmol/L (3.5-5.5)
== END 2020-02-12 11:47 | disposition home or self-care (01) ==
LOC: ER 06:40
PROVIDERS: Emergency Medicine
DX: S52.501A Unspecified fracture of the lower end of right radius, initial encounter for closed fracture (principal); S52.614A Nondisplaced fracture of right ulna styloid process, initial encounter for closed fracture; S32.591A Other specified fracture of right pubis, initial encounter for closed fracture; S00.83XA Contusion of other part of head, initial encounter; S80.811A Abrasion, right lower leg, initial encounter; Z88.0 Allergy status to penicillin; Z88.2 Allergy status to sulfonamides; Z88.1 Allergy status to other antibiotic agents; Z88.5 Allergy status to narcotic agent; Z88.8 Allergy status to other drugs, medicaments and biological substances; Z79.899 Other long term (current) drug therapy; I48.91 Unspecified atrial fibrillation; I11.0 Hypertensive heart disease with heart failure; I50.9 Heart failure, unspecified; E78.5 Hyperlipidemia, unspecified; W18.30XA Fall on same level, unspecified, initial encounter
CPT/HCPCS: 29125; 70450; 73110; 73502; 80048; 85025; 93005; 93010; 96374-59; 99285-25; G0480

== ENCOUNTER 2020-02-16 11:33 | Observation (INO) | payer OTHER ==
[~2020-02-16] VITALS: Ht 152.4 cm; Wt 50.4 kg
[2020-02-16 12:47] LABS: Source, Urine Catheter
[2020-02-16 12:56] LABS: Bilirubin, Urine Neg (Neg); Blood, Urine 2+ (Neg); Glucose Qualitative, Urine Neg (Neg); Ketones, Urine Neg (Neg); Leukocyte Esterase, Urine 3+ (Neg); Nitrite, Urine Pos (Neg); Protein, Urine Neg (Neg); Specific Gravity, Urine 1.015 (1.003-1.022); Urobilinogen, Urine 3+ (Normal)
[2020-02-16 13:10] LABS: Appearance, Urine Cloudy (Clear); Color, Urine Yellow (P-Yellow)
[2020-02-16 13:13] LABS: White Blood Cells, Urine 25-50 /hpf (0-5)
[2020-02-16 13:16] LABS: Bacteria Many /hpf; Squamous Epithelial Cells Few /hpf (Few)
[2020-02-16 13:31] LABS: BASOPHILS ABSOLUTE AUTO 0.04 K/mm3 (0.00-0.23); BASOPHILS PERCENT AUTO 0 % (0-2); EOSINOPHILS ABSOLUTE AUTO 0.14 K/mm3 (0.00-0.68); EOSINOPHILS PERCENT AUTO 2 % (0-6); Hemoglobin 10.6 g/dL (11.5-16.0); IMMATURE GRAN ABSOLUTE AUTO 0.04 K/mm3 (0.00-0.10); IMMATURE GRAN PERCENT AUTO 0 % (0-1); LYMPHOCYTES ABSOLUTE AUTO 1.18 K/mm3 (0.84-5.20); LYMPHOCYTES PERCENT AUTO 13 % (21-46); MONOCYTES ABSOLUTE AUTO 0.73 K/mm3 (0.16-1.47); MONOCYTES PERCENT AUTO 8 % (4-13); Mean Corpuscular HGB 33.8 pg (26.0-34.0); Mean Corpuscular HGB Conc 31.2 g/dL (31.5-36.5); Mean Corpuscular Volume 108 fL (80-100); Mean Platelet Volume 8.8 fL (9.1-12.4); NEUTROPHILS PERCENT AUTO 76 % (41-73); Platelet Count 323 K/mm3 (150-400); RDW Coefficient Variation 14.5 % (11.7-14.2); RDW Standard Deviation 57.3 fL (35.1-46.3); Red Blood Cell Count 3.14 M/mm3 (3.80-5.20); White Blood Cell Count 8.93 K/mm3 (4.00-11.30)
[2020-02-16 13:53] LABS: Alanine Aminotransfer (ALT/SGP 11 U/L (12-78); Albumin, Blood 2.7 g/dL (3.4-5.0); Albumin/Globulin Ratio 0.6 (0.8-1.8); Alk Phos 110 U/L (50-136); Anion Gap 7 mmol/L (6-16); Aspartate Aminotrans (AST/SGOT 13 U/L (12-37); Bilirubin, Total 1.1 mg/dL (0.1-1.0); Blood Urea Nitrogen 17 mg/dL (8-24); Bun/Creatinine Ratio 24.7 (12.0-20.0); CO2, Blood 23 mmol/L (21-32); Calcium, Blood 8.4 mg/dL (8.5-10.1); Chloride, Blood 105 mmol/L (98-108); Creatinine, Blood 0.69 mg/dL (0.40-1.00); Globulin, Blood 4.2 g/dL (2.2-4.0); Glomerular Filtration Rate >60 (60-); Glucose, Blood 105 mg/dL (70-99); Potassium, Blood 4.6 mmol/L (3.5-5.5); Sodium, Blood 135 mmol/L (136-145); Total Protein, Blood 6.9 g/dL (6.4-8.2)
[2020-02-16] MEDS ORDERED: Vitamin D2000 UNIT PO (15:26)
[2020-02-16] MEDS ORDERED: ASPI81CH PO (15:27)
--- NOTE | 2020-02-16 16:12 | NUR ---
PATIENT IS IN BED. NO COMPLAINTS
[2020-02-16] MEDS ORDERED: PROLIA60 MG/1 ML SC (16:55)
--- NOTE | 2020-02-16 18:12 | NUR ---
PATIENT IS ALERT AND ORIENTED AND COOPERATIVE WITH CARE. SHE LIVES AT HOME WITH HER SON AND HIS . SHE STATES HER [id number] IS VERY HELPFUL WITH HER CARE AT HOME. SHE HAS A HISTORY OF FALLS. SHE IS IN PAIN AND THEREFORE UNABLE TO GET OUT OF BED AT THIS TIME. NO COMPLAINTS. WILL CONTINUE TO MONITOR
--- NOTE | 2020-02-17 04:12 | NUR ---
SHIFT SUMMARY A/O, ABLE TO MAKE NEEDS KNOWN. COOPERATIVE WITH CARE. ANSWERS QUESTIONS APPROPRIATELY. C/O PAIN/DISCOMFORT X1; MEDICATED PER EMAR. INCONTINENT OF URINE; CHANGED ATTENDS AND REPOSITIONED. CLEANSED AND RE-DRESSED SKIN TEARS TO VARIOUS LOCATIONS ON ARMS/LEGS. PICTURES TAKEN; IN CHART. DID NOT APPEAR TO REST MUCH; AWAKE MOST OF SHIFT. NO ACUTE CHANGES NOTED. VSS/AFEBRILE. BED REMAINS IN LOWEST POSITION. CALL LIGHT AND BELONGINGS WITHIN REACH. WCTM. REPORT TO ONCOMING RN.
[2020-02-17 05:23] LABS: BASOPHILS ABSOLUTE AUTO 0.05 K/mm3 (0.00-0.23); BASOPHILS PERCENT AUTO 0 % (0-2); EOSINOPHILS ABSOLUTE AUTO 0.27 K/mm3 (0.00-0.68); EOSINOPHILS PERCENT AUTO 2 % (0-6); Hematocrit 33.3 % (33.0-51.0); Hemoglobin 10.2 g/dL (11.5-16.0); IMMATURE GRAN ABSOLUTE AUTO 0.07 K/mm3 (0.00-0.10); IMMATURE GRAN PERCENT AUTO 1 % (0-1); LYMPHOCYTES ABSOLUTE AUTO 1.75 K/mm3 (0.84-5.20); LYMPHOCYTES PERCENT AUTO 15 % (21-46); MONOCYTES ABSOLUTE AUTO 1.05 K/mm3 (0.16-1.47); MONOCYTES PERCENT AUTO 9 % (4-13); Mean Corpuscular HGB Conc 30.6 g/dL (31.5-36.5); Mean Corpuscular Volume 108 fL (80-100); Mean Platelet Volume 8.9 fL (9.1-12.4); NEUTROPHILS ABSOLUTE AUTO 8.72 K/mm3 (1.96-9.15); NEUTROPHILS PERCENT AUTO 73 % (41-73); Platelet Count 355 K/mm3 (150-400); RDW Coefficient Variation 14.2 % (11.7-14.2); RDW Standard Deviation 55.8 fL (35.1-46.3); Red Blood Cell Count 3.09 M/mm3 (3.80-5.20); White Blood Cell Count 11.91 K/mm3 (4.00-11.30)
[2020-02-17 05:43] LABS: Bun/Creatinine Ratio 23.1 (12.0-20.0); Calcium, Blood 7.9 mg/dL (8.5-10.1); Creatinine, Blood 1.08 mg/dL (0.40-1.00); Potassium, Blood 4.7 mmol/L (3.5-5.5)
--- NOTE | 2020-02-17 13:17 | NUR ---
Spiritual care visit conducted. Patient is sitting up in bed and alert. Patient's son, Remy, is present. Patient tells me about her falls and he current medical issues, about her family and her belief system. Patient tells me her concerns about her health going forward but emphasises that she has "a lot of fight left." I listen empathically, reinforce helpful attitudes and practices and provide prayer. Patient responds well and shows sign of an elevated mood.
--- NOTE | 2020-02-17 16:49 | NUR ---
REPORT CALLED TO [facility]
== END 2020-02-17 17:00 ==
LOC: ER 11:33 → ERHOLD 11:34 → MEDS 11:34
PROVIDERS: Emergency Medicine; Nurse Practitioner Acute Care; ADMIT Hospitalist
DX: S52.124 Nondisplaced fracture of head of right radius (principal); S00.93XS Contusion of unspecified part of head, sequela; S32.511S Fracture of superior rim of right pubis, sequela; S32.591S Other specified fracture of right pubis, sequela; I48.20 Chronic atrial fibrillation, unspecified; I11.0 Hypertensive heart disease with heart failure; I50.32 Chronic diastolic (congestive) heart failure; R82.81 Pyuria; Z66 Do not resuscitate; R54 Age-related physical debility; Z88.5 Allergy status to narcotic agent; Z88.0 Allergy status to penicillin; Z88.1 Allergy status to other antibiotic agents; Z88.8 Allergy status to other drugs, medicaments and biological substances; Z88.2 Allergy status to sulfonamides; Z79.01 Long term (current) use of anticoagulants; E78.5 Hyperlipidemia, unspecified; Z79.899 Other long term (current) drug therapy; Z79.82 Long term (current) use of aspirin; Z11.59 Encounter for screening for other viral diseases
CPT/HCPCS: 36415; 80048; 80053; 81001; 85025; 87077; 87086; 87186; 93005; 93010; 97110; 97162; 97166; 97530; 99285-25; A9270; A9270-GY; G0378; P9612; U0002

== ENCOUNTER 2020-03-23 16:03 | Inpatient (IN) | payer OTHER ==
[~2020-03-23] VITALS: Ht 149.9 cm; Wt 50.8 kg
[~2020-03-23 16:03] MED LIST changes: +PROLIA60 MG/1 ML SC; +Vitamin D2000 UNIT PO
[2020-03-23 16:45] LABS: BASOPHILS ABSOLUTE AUTO 0.03 K/mm3 (0.00-0.23); BASOPHILS PERCENT AUTO 0 % (0-2); EOSINOPHILS PERCENT AUTO 2 % (0-6); Hematocrit 41.3 % (33.0-51.0); Hemoglobin 11.9 g/dL (11.5-16.0); IMMATURE GRAN ABSOLUTE AUTO 0.06 K/mm3 (0.00-0.10); IMMATURE GRAN PERCENT AUTO 0 % (0-1); LYMPHOCYTES ABSOLUTE AUTO 0.55 K/mm3 (0.84-5.20); LYMPHOCYTES PERCENT AUTO 4 % (21-46); MONOCYTES ABSOLUTE AUTO 0.59 K/mm3 (0.16-1.47); MONOCYTES PERCENT AUTO 4 % (4-13); Mean Corpuscular HGB 31.6 pg (26.0-34.0); Mean Corpuscular HGB Conc 28.8 g/dL (31.5-36.5); Mean Corpuscular Volume 110 fL (80-100); Mean Platelet Volume 9.4 fL (9.1-12.4); NEUTROPHILS ABSOLUTE AUTO 12.21 K/mm3 (1.96-9.15); NEUTROPHILS PERCENT AUTO 90 % (41-73); Platelet Count 308 K/mm3 (150-400); RDW Coefficient Variation 14.1 % (11.7-14.2); RDW Standard Deviation 57.2 fL (35.1-46.3); Red Blood Cell Count 3.76 M/mm3 (3.80-5.20); White Blood Cell Count 13.64 K/mm3 (4.00-11.30)
[2020-03-23 17:12] LABS: Alanine Aminotransfer (ALT/SGP 14 U/L (12-78); Albumin, Blood 3.1 g/dL (3.4-5.0); Albumin/Globulin Ratio 0.7 (0.8-1.8); Alk Phos 139 U/L (50-136); Anion Gap 8 mmol/L (6-16); Aspartate Aminotrans (AST/SGOT 18 U/L (12-37); Bilirubin, Total 1.2 mg/dL (0.1-1.0); Blood Urea Nitrogen 10 mg/dL (8-24); Bun/Creatinine Ratio 17.2 (12.0-20.0); CO2, Blood 24 mmol/L (21-32); Calcium, Blood 8.5 mg/dL (8.5-10.1); Chloride, Blood 110 mmol/L (98-108); Creatinine, Blood 0.58 mg/dL (0.40-1.00); Globulin, Blood 4.2 g/dL (2.2-4.0); Glomerular Filtration Rate >60 (60-); Glucose, Blood 102 mg/dL (70-99); Potassium, Blood 4.2 mmol/L (3.5-5.5); Sodium, Blood 142 mmol/L (136-145); Total Protein, Blood 7.3 g/dL (6.4-8.2); Troponin I <0.015 ng/mL (0.000-0.040)
[2020-03-23] MEDS ORDERED: Cymbalta20 MG PO (19:32)
[2020-03-23] MEDS ORDERED: SPIR25 PO (20:06)
[2020-03-23] MEDS ORDERED: METO25ER PO (20:06)
[2020-03-23] MEDS ORDERED: CALCITONIN-SAL3.7 M1 (20:06)
[2020-03-23] MEDS ORDERED: Aspir 8181 MG PO (20:07)
--- NOTE | 2020-03-23 21:00 | NUR ---
RECEIVED REPORT FROM THOMASED RN. PT TRANSPORTED TO MEDICAL FLOOR VIA GURNEY, TRANSFERRED TO BED. PT ALERT, ORIENTED. RESPS EVEN AND UNLABORED. 02 SATS STABLE ON 2L/NC. DENIES SOB AT THIS TIME. VSS. SITUATED IN BED AND ORIENTED TO USE OF CALL LIGHT, AND UNIT. DENIES NEEDS AT THIS TIME. CALL LIGHT, POSSESSIONS IN REACH. BED IN LOWEST POSITION WITH ALARM ON. WILL CONTINUE TO MONITOR.
--- NOTE | 2020-03-24 03:51 | NUR ---
SHIFT SUMMARY PT A&O X3, PLEASANT AND COOPERATIVE, BUT SOMEWHAT OF A POOR HISTORIAN. HAD NO ACUTE CHANGES IN CONDITION SINCE ARRIVAL TO MEDICAL FLOOR. MONITORED EVERY 1-2 HOURS WITH NEEDS MET. SLEPT T/O MUCH OF THE SHIFT. VS AND O2 SATS STABLE ON 2L/NC, RESPS EVEN AND UNLABORED. AM LABS PENDING AT THIS TIME. PT REMAINS ASLEEP, DENIES NEEDS. CALL LIGHT, POSSESSIONS IN REACH, BED IN LOW POSITION WITH ALARM ON. WILL CONTINUE TO MONITOR AND PROVIDE CARE NEEDED UNTIL DAY RN ASSUMES CARE.
[2020-03-24 05:28] LABS: Anion Gap 8 mmol/L (6-16); Blood Urea Nitrogen 8 mg/dL (8-24); Bun/Creatinine Ratio 13.3 (12.0-20.0); CO2, Blood 27 mmol/L (21-32); Calcium, Blood 8.2 mg/dL (8.5-10.1); Chloride, Blood 110 mmol/L (98-108); Glomerular Filtration Rate >60 (60-); Glucose, Blood 72 mg/dL (70-99); Sodium, Blood 145 mmol/L (136-145)
[2020-03-24 05:51] LABS: BASOPHILS ABSOLUTE AUTO 0.01 K/mm3 (0.00-0.23); BASOPHILS PERCENT AUTO 0 % (0-2); EOSINOPHILS ABSOLUTE AUTO 0.28 K/mm3 (0.00-0.68); EOSINOPHILS PERCENT AUTO 4 % (0-6); Hematocrit 37.2 % (33.0-51.0); Hemoglobin 10.7 g/dL (11.5-16.0); IMMATURE GRAN ABSOLUTE AUTO 0.02 K/mm3 (0.00-0.10); IMMATURE GRAN PERCENT AUTO 0 % (0-1); LYMPHOCYTES ABSOLUTE AUTO 0.72 K/mm3 (0.84-5.20); LYMPHOCYTES PERCENT AUTO 9 % (21-46); MONOCYTES ABSOLUTE AUTO 0.57 K/mm3 (0.16-1.47); MONOCYTES PERCENT AUTO 7 % (4-13); Mean Corpuscular HGB 31.2 pg (26.0-34.0); Mean Corpuscular HGB Conc 28.8 g/dL (31.5-36.5); Mean Corpuscular Volume 109 fL (80-100); Mean Platelet Volume 9.4 fL (9.1-12.4); NEUTROPHILS ABSOLUTE AUTO 6.45 K/mm3 (1.96-9.15); NEUTROPHILS PERCENT AUTO 80 % (41-73); Platelet Count 267 K/mm3 (150-400); RDW Coefficient Variation 14.1 % (11.7-14.2); RDW Standard Deviation 56.5 fL (35.1-46.3); Red Blood Cell Count 3.43 M/mm3 (3.80-5.20); White Blood Cell Count 8.05 K/mm3 (4.00-11.30)
--- NOTE | 2020-03-24 16:55 | NUR ---
Initial palliative care consult: Jazmine is an 89 year old lady with a history of CHF, a-fib, HTN, COPD, anemia, and chronic home O2 use @ 2l/min. She lives with her son Remy and his ex-, Etsher, who is Jazmine's caregiver. She was evaluated by [facility] on 03/23/20 and was referred to the ER for possible pneumonia and low O2 sats. She did not sign up for hospice yesterday, however she desires to sign up for hospice admission with [facility] when she is discharged from the hospital. Jazmine is alert ane oriented. She sleeps off and on, but awakens easily and enjoys conversation. She is currently on her baseline O2 requirement of 2 l/min and denies any current SOB. Her resp rate is 26-30/min and shallow. No c/o cough or N/V. She reports fatigue which is chronic for her. She takes frequent naps at home when she feels tired. She reports decreased appetite, "I graze a little all day long." Esther provides her with snacks and meals prn. She ambulates with a walker at home. She also has a wheelchair, BSC and shower chair. She would like to have a hospital bed and overbed table for when she goes home with hospice. LM for on this weekendHayley, for that euipment to be arranged prior to her discharge home with hospice. She is able to feed herself. She requires SBA with ADLs of showering and dressing as she reports she is fearful of falling. She had a fall > 6 weeks ago when she fractured her wrist and pelvis. She reports she is healing from these fractures slowly and is fearful of them happening again. Transportation is provided by her son and ex DIL. She reports she has three children who live locally and feels well supported by them. She reports that when her son and Esther are not available, her other son who lives next door to her comes over to spend time with her. She denies financial stress. Medications are managed with a pill minder box that is filled weekly by Esther, her caregiver. Spoke with nursing and rec'd an update. Pt will likely be ready for discharge in the next day or so. She desires to go home with [facility] at time of discharge with her family. PC will continue to follow for symptom management and assisting with hospice discharge arrangements as needed.
--- NOTE | 2020-03-24 18:45 | NUR ---
SHIFT SUMMARY. A&OX3, PLEASANT AND COOPERATIVE WITH CARE, AWARE OF LIMITATIONS. PT CONTINUES WITH 2L O2 NC, WHICH IS PT'S BASELINE. LUNGS DIM IN THE BASES. IV LASIX GIVEN THIS EVENING. PT DENIES SOB, N/V. PT REPORTED PAIN TO LOWER BACK THAT IS CHRONIC, PAIN MANAGED WELL WITH APAP ONCE THIS SHIFT. PT'S SON IN TO VISIT THIS AFTERNOON, WAS AGREEABLE WITH PLAN OF CARE. NO OTHER CHANGES OR CONCERNS.
--- NOTE | 2020-03-24 19:05 | NUR ---
ASSUMED CARE RECEIVED REPORT FROM JASSON MOORE. ASSUMED CARE OF PT. SITTING IN CHAIR AT THIS TIME, WORKING ON HER DINNER TRAY. NO APPARENT S/S DISTRESS NOTED. DENIES NEEDS AT THIS TIME. CALL LIGHT, POSSESSIONS IN REACH. WILL CONTINUE TO MONITOR.
[2020-03-25 04:48] LABS: BASOPHILS ABSOLUTE AUTO 0.02 K/mm3 (0.00-0.23); BASOPHILS PERCENT AUTO 0 % (0-2); EOSINOPHILS ABSOLUTE AUTO 0.39 K/mm3 (0.00-0.68); EOSINOPHILS PERCENT AUTO 6 % (0-6); Hematocrit 39.2 % (33.0-51.0); Hemoglobin 11.5 g/dL (11.5-16.0); IMMATURE GRAN ABSOLUTE AUTO 0.01 K/mm3 (0.00-0.10); IMMATURE GRAN PERCENT AUTO 0 % (0-1); LYMPHOCYTES ABSOLUTE AUTO 0.98 K/mm3 (0.84-5.20); LYMPHOCYTES PERCENT AUTO 15 % (21-46); MONOCYTES ABSOLUTE AUTO 0.56 K/mm3 (0.16-1.47); MONOCYTES PERCENT AUTO 9 % (4-13); Mean Corpuscular HGB 31.6 pg (26.0-34.0); Mean Corpuscular HGB Conc 29.3 g/dL (31.5-36.5); Mean Corpuscular Volume 108 fL (80-100); Mean Platelet Volume 9.6 fL (9.1-12.4); NEUTROPHILS ABSOLUTE AUTO 4.39 K/mm3 (1.96-9.15); NEUTROPHILS PERCENT AUTO 69 % (41-73); Platelet Count 272 K/mm3 (150-400); RDW Standard Deviation 55.1 fL (35.1-46.3); Red Blood Cell Count 3.64 M/mm3 (3.80-5.20); White Blood Cell Count 6.35 K/mm3 (4.00-11.30)
[2020-03-25 05:12] LABS: Anion Gap 2 mmol/L (6-16); Blood Urea Nitrogen 12 mg/dL (8-24); Bun/Creatinine Ratio 18.5 (12.0-20.0); CO2, Blood 34 mmol/L (21-32); Calcium, Blood 8.3 mg/dL (8.5-10.1); Chloride, Blood 108 mmol/L (98-108); Creatinine, Blood 0.65 mg/dL (0.40-1.00); Glomerular Filtration Rate >60 (60-); Glucose, Blood 93 mg/dL (70-99); Potassium, Blood 3.5 mmol/L (3.5-5.5); Sodium, Blood 144 mmol/L (136-145)
--- NOTE | 2020-03-25 05:44 | NUR ---
SHIFT SUMMARY PT HAS HAD AN UNEVENTFUL NIGHT, NO ACUTE CHANGES IN CONDITION NOTED. TACHYPNEIC AT TIMES, PT DENIES SOB, DYSPNEA. O2 SATS STABLE ON 2L/NC. VSS. SLEPT T/O NIGHT. WAS MONITORED EVERY 1-2 HOURS WITH NEEDS MET. DENIES NEEDS AT THIS TIME. CALL LIGHT, POSSESSIONS IN REACH. BED IN LOWEST POSITION WITH ALARM ON. WILL CONTINUE TO MONITOR AND PROVIDE CARE UNTIL DAY RN ASSUMES CARE.
--- NOTE | 2020-03-25 17:17 | NUR ---
SHIFT SUMMARY. PT REPORTS BREATHING HAS IMPROVED TODAY COMPARED TO YESTERDAY. LUNGS CLEAR, DIM IN THE BASES, CONTINUES WITH 2L O2 NC WHICH IS BASELINE FOR PT. NO NEW CHANGES OR CONCERNS.
--- NOTE | 2020-03-25 19:05 | NUR ---
ASSUMED CARE RECEIVED AN UPDATED REPORT FROM JASSON MOORE. PT SHOWING NO S/S ACUTE DISTRESS, RESPS EVEN AND UNLABORED. DENIES NEEDS AT THIS TIME. CALL LIGHT, POSSESSIONS IN REACH. WILL CONTINUE TO MONITOR.
--- NOTE | 2020-03-26 05:14 | NUR ---
SHIFT SUMMARY PT HAS HAD NO ACUTE CHANGES IN CONDITION T/O NIGHT. REPORTS BREATHING HAS IMPROVED, REMAINS ON 2L . VS STABLE. WAS MONITORED EVERY 1-2 HOURS WITH NEEDS MET. DENIES NEEDS AT THIS TIME. CALL LIGHT, POSSESSIONS IN REACH. BED IN LOWEST POSITION WITH ALARM ON. WILL CONTINUE TO MONITOR AND PROVIDE CARE UNTIL DAY RN ASSUMES CARE.
--- NOTE | 2020-03-26 17:41 | NUR ---
Initial spiritual care note: Mrs. Espinoza is a lucy woman who was talkative and upbeat. She feels well-loved and supported by her family. She is used to being active and claims it has been difficult for her to "slow down." She made little jokes and smiled easily. She did not mention being on hospice, but instead said she was hopeful for more quality time. No family present at time of visit. Prayer and encouragement was well received. She does seem quite frail but has a strong spirit. I will remain available.
--- NOTE | 2020-03-26 18:05 | NUR ---
SHIFT SUMMARY. PT DENIES PAIN, SOB, N/V. CONTINUES WITH 2L O2 NC, LUNGS CLEAR. CARE MANAGEMENT AWARE OF PT'S NEEDS OF TIME OF DISCHARGE. NO NEW CHANGES OR CONCERNS.
--- NOTE | 2020-03-27 04:45 | NUR ---
SUMMARY: PT A/O, CALLS APPROPRIATELY AND SPECIFIES NEEDS. SHE HAS R.ARM FX BUT DENIED NEEDING ANYTHING FOR PAIN. PT REPOSITIONS SELF IN BED BUT REQUIRES 1P ASSIST TO BSC. SHE WAS INCONTINENT THIS SHIFT HOWEVER AND HAD ATTENDS CHANGED PRN. PT REMAINS ON 2L PER BASELINE W/SPO2 WNL AND CLEAR LS. SHE CONT'S TACHY W/HR 100'S BUT THIS HAS IMPROVED SLIGHTLY W/ADDITION OF HS TOPROL XL. NO ACUTE CHANGES, VSS/AFEBRILE. PT TO GO HOME W/HOSPICE TODAY. WCTM/REPORT TO DAY RN.
[2020-03-27 04:49] LABS: BASOPHILS ABSOLUTE AUTO 0.03 K/mm3 (0.00-0.23); BASOPHILS PERCENT AUTO 1 % (0-2); EOSINOPHILS ABSOLUTE AUTO 0.48 K/mm3 (0.00-0.68); EOSINOPHILS PERCENT AUTO 8 % (0-6); Hemoglobin 10.8 g/dL (11.5-16.0); IMMATURE GRAN ABSOLUTE AUTO 0.02 K/mm3 (0.00-0.10); IMMATURE GRAN PERCENT AUTO 0 % (0-1); LYMPHOCYTES PERCENT AUTO 20 % (21-46); MONOCYTES ABSOLUTE AUTO 0.61 K/mm3 (0.16-1.47); MONOCYTES PERCENT AUTO 10 % (4-13); Mean Corpuscular HGB 31.3 pg (26.0-34.0); Mean Corpuscular HGB Conc 29.2 g/dL (31.5-36.5); Mean Corpuscular Volume 107 fL (80-100); Mean Platelet Volume 9.8 fL (9.1-12.4); NEUTROPHILS ABSOLUTE AUTO 3.92 K/mm3 (1.96-9.15); NEUTROPHILS PERCENT AUTO 62 % (41-73); Platelet Count 271 K/mm3 (150-400); RDW Coefficient Variation 14.1 % (11.7-14.2); RDW Standard Deviation 55.2 fL (35.1-46.3); Red Blood Cell Count 3.45 M/mm3 (3.80-5.20); White Blood Cell Count 6.36 K/mm3 (4.00-11.30)
[2020-03-27 05:07] LABS: Albumin, Blood 2.8 g/dL (3.4-5.0); Anion Gap 3 mmol/L (6-16); Blood Urea Nitrogen 8 mg/dL (8-24); Bun/Creatinine Ratio 13.8 (12.0-20.0); CO2, Blood 35 mmol/L (21-32); Calcium, Blood 8.3 mg/dL (8.5-10.1); Chloride, Blood 104 mmol/L (98-108); Creatinine, Blood 0.58 mg/dL (0.40-1.00); Glomerular Filtration Rate >60 (60-); Glucose, Blood 107 mg/dL (70-99); Magnesium, Blood 1.8 mg/dL (1.6-2.4); Phosphorus, Blood 2.3 mg/dL (2.5-4.9); Potassium, Blood 3.7 mmol/L (3.5-5.5); Sodium, Blood 142 mmol/L (136-145)
[2020-03-27] MEDS ORDERED: METO25ER PO (11:04)
[2020-03-27] MEDS ORDERED: Banatrol1 EACH PO (11:04)
[2020-03-27] MEDS ORDERED: KEFLEX500 MG PO (11:05)
[2020-03-27] MEDS ORDERED: LACT PO (11:06)
--- NOTE | 2020-03-27 11:39 | NUR ---
DISCHARGE DISCHARGE MEDICATIONS AND INSTRUCTIONS EXPLAINED TO PATIENT. PATIENT STATED UNDERSTANDING. DISCHARGE PACKET WITH PATIENT. PATIENT DISCHARGING HOME WITH HOSPICE. IV REMOVED WITHOUT DIFFICULTY. BELONGINGS WITH PATIENT. PATIENT TRANSPORTED HOME VIA WHEELCHAIR TAXI.
== END 2020-03-27 11:40 | disposition hospice, home (50) | DRG 194 ==
LOC: ER 16:03 → MEDS 16:04
PROVIDERS: Emergency Medicine; Family Medicine; Internal Medicine; Nurse Practitioner Acute Care; ADMIT Internal Medicine
DX: J18.9 Pneumonia, unspecified organism (principal); J96.10 Chronic respiratory failure, unspecified whether with hypoxia or hypercapnia; I48.20 Chronic atrial fibrillation, unspecified; J98.11 Atelectasis; I11.0 Hypertensive heart disease with heart failure; S52.124A Nondisplaced fracture of head of right radius, initial encounter for closed fracture; E78.5 Hyperlipidemia, unspecified; Z66 Do not resuscitate; R54 Age-related physical debility; Z74.09 Other reduced mobility; D64.89 Other specified anemias; Z99.81 Dependence on supplemental oxygen; Z88.0 Allergy status to penicillin; Z88.2 Allergy status to sulfonamides; Z88.8 Allergy status to other drugs, medicaments and biological substances
CPT/HCPCS: 36415; 71045; 71046; 80048; 80053; 80069; 83605; 83735; 83880; 84145; 84484; 85025; 87040; 93005; 93010; 96365; 96366; 97112; 97162; 97165; 97530; 99285-25; A9270; G0378; J0696; J1940